=== PATIENT | male | born 1985 | race Caucasian/White ===

== ENCOUNTER → 2021-03-08 12:13 | Outpatient (CLI) | payer BC, SELFPAY ==
--- NOTE | ~2021-03-08 | MR_ITS ---
EXAMINATION: MR brain/brain stem wo/w con DATE: 03/08/2021 13:19 INDICATION: Headache. TECHNIQUE: Magnetic resonance imaging (MRI) of the brain and brainstem was performed without and with 20 mL MultiHance intravenous contrast. Sequences included sagittal and axial T1-weighted FSE, axial diffusion-weighted FS EPI, axial T2*-weighted GRE, axial T2-weighted FLAIR Propeller, and axial T2-we ighted Propeller. Postcontrast sequences included axial and coronal T1-weighted FSE. Apparent diffusi on coefficient (ADC) maps were created. COMPARISON: None. FINDINGS: There is no intracranial hemorrhage, acute infarction, or abnormal intracranial mass lesion . The ventricles are normal in size. The orbits are normal. There is mild mucosal thickening in the p aranasal sinuses. There is a trace left mastoid effusion. IMPRESSION: 1. Normal brain. Reviewed, dictated and finalized at location A. IMPRESSION: 1. Normal brain.
[2021-03-08 13:00] LABS: Estimated Glomerular Filt Rate 53
== END ==
PROVIDERS: PCP Family Medicine; Visit Provider Nurse Practitioner Family
DX: R51.9 Headache, unspecified (principal)
CPT/HCPCS: 70553; A9577

== ENCOUNTER 2023-10-17 09:33 | Outpatient (CLI) | payer BC, SELFPAY ==
--- NOTE | 2023-10-25 20:24 | WPDHOMESLEEP ---
Sleep Study - Home Unattended Date of Study: 10/17/23 Ordering Provider: Melissa Beauchamp MD Interpreting Provider: Melissa Beauchamp MD Home Sleep Study Type: Watch PAT Height: 1.88 m Weight: 104.326 kg Body Mass Index: 29.5 Neck Circumference (inches): 16.5 [place]: 1 Reason for Sleep Study Daytime drowsiness and fatigue Sleep History Genaro Shanakr is a 38-year-old man with difficulty getting to sleep and staying asleep. He has used sleep aids including Trazodone to get to sleep, and Adderall to improve daytime alertness, without improvement. He has diabetes type I for years on an insulin pump. He never awakens from sleep feeling short of breath. He never wakes at night with heartburn, belching or coughing.??He rarely snores, rarely snores loudly enough that others complain. He occasionally has trouble sleeping when he has a cold. He never wakes up gasping for breath during the night. He never has breathing problems at night. He never sweats excessively at night. He never notices his heart pounding or beating irregularly during the night. He rarely falls asleep during the day. He never falls asleep involuntarily, and never falls asleep while driving. He never experiences loss of muscle tone with strong emotion. He constantly has daytime difficulty at work due to excessive sleepiness, he is a web software engineer. He never feels paralyzed on waking or falling asleep. He never experiences vivid dreams upon waking or falling asleep. He never feels afraid of going to sleep. He rarely has nightmares. He rarely recalls his dreams. He rarely has thoughts racing through his mind. He occasionally feels sad or depressed. He frequently feels anxiety. He rarely notices parts of his body jerk. He rarely kicks during the night. He never feels crawling or aching feelings in his legs. He never feels leg pain at night. He never has morning jaw pain, never grinds his teeth at night. He occasionally feels bothered by pain during the day, never awakened by pain during the night. He frequently wakes up feeling stiff in the morning, and he frequently wakes up feeling sore or achy. He frequently awakens with pain in his neck, spine, or joints. He has memory problems and concentration difficulties. He has headaches and insomnia. Normal bedtime is 10:30 p.m., falling asleep within 15-30 minutes, waking 3 or 4 times at night, stays awake for 15 minutes but sometimes up to 1 hour. His nighttime awakenings generally are related to his diabetes, sometimes with low glucose and associated shaking or having hallucinations. He tries not to wake his when he wakes at night. His wake time is 6:30 a.m.. On weekends, bedtime is a little later, 11:00 p.m. to 12 midnight and he wakes up by 7:30 a.m. In general, he does not take naps. A short nap lasting 10-15 minutes is not refreshing. He is usually drowsy all day long. Habits:??Tobacco: never Caffeine:2 cups of coffee. Alcohol: some Recreational substances: marijuana PMFSH Past Medical History Medical History ADD (attention deficit disorder) BMI 29.0-29.9,adult BMI 30.0-30.9,adult BMI greater than 30 Degenerative lumbar disc Infertility Low sperm motility Major depressive disorder, single episode, unspecified Radicular leg pain Stress due to family tension Type 1 diabetes Surgical History Surgical History H/O Spinal surgery Hx of shoulder surgery Family History Family History Mother Family history of malignant neoplasm of breast in first degree relative Breast cancer Degenerative disease of central nervous system Father COVID-19 Hypertension Sibling No problems noted. Social History Social History Smoking status: Never smoker Second hand tobacco smok
[2023-10-25 20:31] VITALS: BMI 29.5
== END 2023-10-18 07:00 | disposition home or self-care (01) ==
LOC: ANHCSM 09:34
PROVIDERS: PCP Family Medicine; Visit Provider Internal Medicine Critical Care Medicine
DX: G47.19 Other hypersomnia (principal)
CPT/HCPCS: 95800

== ENCOUNTER 2024-01-15 08:31 | Outpatient (CLI) | payer BC, SELFPAY ==
--- NOTE | 2024-02-07 15:57 | WPDSLEEPSTUD ---
Sleep Study Date of Study: 01/15/24 Ordering Provider: Melissa Beauchamp MD Interpreting Physician: Lety Palomino, Sleep Study Type: Polysomnogram Height: 1.88 m Weight: 102.058 kg Body Mass Index: 28.8 Neck Circumference (inches): 16 [place]: 1 Reason for Sleep Study Daytime hypersomnia WatchPAT home sleep test on 10/17/2023 showed overall AHI of 1.4 with desaturation down to 85%. Overall RDI was 14.9. Sleep History Genaro Shankar is a 38-year-old man with difficulty getting to sleep and staying asleep. He has used sleep aids including Trazodone to get to sleep, and Adderall to improve daytime alertness, without improvement. He has diabetes type I for years on an insulin pump. He never awakens from sleep feeling short of breath. He never wakes at night with heartburn, belching or coughing.??He rarely snores, rarely snores loudly enough that others complain. He occasionally has trouble sleeping when he has a cold. He never wakes up gasping for breath during the night. He never has breathing problems at night. He never sweats excessively at night. He never notices his heart pounding or beating irregularly during the night. He rarely falls asleep during the day. He never falls asleep involuntarily, and never falls asleep while driving. He never experiences loss of muscle tone with strong emotion. He constantly has daytime difficulty at work due to excessive sleepiness, he is a software support technician. He never feels paralyzed on waking or falling asleep. He never experiences vivid dreams upon waking or falling asleep. He never feels afraid of going to sleep. He rarely has nightmares. He rarely recalls his dreams. He rarely has thoughts racing through his mind. He occasionally feels sad or depressed. He frequently feels anxiety. He rarely notices parts of his body jerk. He rarely kicks during the night. He never feels crawling or aching feelings in his legs. He never feels leg pain at night. He never has morning jaw pain, never grinds his teeth at night. He occasionally feels bothered by pain during the day, never awakened by pain during the night. He frequently wakes up feeling stiff in the morning, and he frequently wakes up feeling sore or achy. He frequently awakens with pain in his neck, spine, or joints. He has memory problems and concentration difficulties. He has headaches and insomnia. Normal bedtime is 10:30 p.m., falling asleep within 15-30 minutes, waking 3 or 4 times at night, stays awake for 15 minutes but sometimes up to 1 hour. His nighttime awakenings generally are related to his diabetes, sometimes with low glucose and associated shaking or having hallucinations. He tries not to wake his when he wakes at night. His wake time is 6:30 a.m.. On weekends, bedtime is a little later, 11:00 p.m. to 12 midnight and he wakes up by 7:30 a.m. In general, he does not take naps. A short nap lasting 10-15 minutes is not refreshing. He is usually drowsy all day long. Habits:??Tobacco: never Caffeine:2 cups of coffee. Alcohol: some Recreational substances: marijuana PMFSH Past Medical History Medical History ADD (attention deficit disorder) BMI 29.0-29.9,adult BMI 30.0-30.9,adult BMI greater than 30 Degenerative lumbar disc Infertility Low sperm motility Major depressive disorder, single episode, unspecified Radicular leg pain Stress due to family tension Type 1 diabetes Surgical History Surgical History H/O Spinal surgery Hx of shoulder surgery Family History Family History Mother Family history of malignant neoplasm of breast in first degree relative Breast cancer Degenerative disease of central nervous system Father COVID-19 Hypertension Sibling No problems noted. Social History Social History (Reviewe
[2024-02-07 16:01] VITALS: BMI 28.8
== END 2024-01-16 04:15 | disposition home or self-care (01) ==
LOC: ANHCSM 08:36
PROVIDERS: PCP Family Medicine; Visit Provider Internal Medicine Critical Care Medicine
DX: G47.19 Other hypersomnia (principal)
CPT/HCPCS: 95810

== ENCOUNTER 2024-09-17 09:52 | Outpatient (CLI) | payer OTHER, SELFPAY ==
--- OUTSIDE RECORDS SUMMARY | 2024-09-17 11:15 | XMS_ITS | Clinical Summary ---
Author Organization [facility] Address [address] [place] [place] [address] Phone Care Team Providers Care Contract Negotiation Manager Name Role Phone Unavailable Primary Care Provider Unavailabl e Allergies No known active allergies Medications insulin lispro (HumaLOG) 100 unit/mL vial Inject by subcutaneous injection. Active insulin glargine (LANTUS) 100 unit/mL injection Inject by subcutaneous injection. Active insulin regular, human (AFREZZA INHALATION) Take by inhalation. Active dextroamphetami ne-amphetamine (ADDERALL) 30 mg tablet Take 30 mg by mouth daily. Active FLUoxetine (PROzac) 20 mg capsule Take 20 mg by mouth daily. Active Active Problems No known active problems Social History Tobacco Use Types Packs/Day Years Used Date Smoking Tobacco: Never Smokeless Tobacco: Never Tobacco Cessation:Counseling Given: No Alcohol Use Standard Drinks/Week Comments Yes 0 (1 standard drink = 0.6 oz pur e alcohol) Sex and Gender Information Value Date Recorded Sex Assigned at Not on file Legal Sex Male 12:50 PM CDT Gender Identity Not on file Sexual Orientation Not on file Last Filed Vital Signs Vital Sign Reading Time Taken Comments Blood Pressure - - Pulse - - Temperature - - Respiratory Rate 18 11/26/2018 1:30 PM CDT Oxygen Saturation - - Inhaled Oxygen Concentration - - Weight 99.8 kg (220 lb) 11/26/2018 1:30 PM CDT Height 188 cm (6' 2 ) 11/26/2018 1:30 PM CDT Body Mass Index 28.25 11/26/2018 1:30 PM CDT Plan of Treatment Health Maintenance Due Date Last Done Comments DTAP/TDAP/TD VACCINES (1 - Tdap) 2002 HEPATITIS B VACCINES (1 of 3 - 19+ 3-dose series) 2002 INFLUENZA VACCINE (#1) 2023 HPV VACCINES Aged Out No longer eligi ble based on patient's age to complete this topic Insurance [address] [place] [id number] [facility] OPEN ACCESS [place] [address] [place] [id number]
--- OUTSIDE RECORDS SUMMARY | 2024-09-17 11:15 | XMS_ITS | Encounter Summary ---
Author Organization [facility] Address [address] [place] [address] Care Team Providers Care Manager Club Name Role Phone Kaushal Long MD Primary Care Provider [phone] Encounter Details Date Type Department Care Team (Late st Contact Info) Description 02/03/2022 Telephone [facility] [address] [place], [place] [id number] Hira Engle MD [address] [facility] [address] [place] [address] Social History Tobacco Use Types Packs/Day Years Used Date Smoking Tobacco: Never Smokeless Tobacco: Never Alcohol Use Standard Drinks/Week Comments Not Currently 0 (1 standard drink = 0.6 oz pur e alcohol) Sex and Gender Information Value Date Recorded Sex Assigned at Not on file Legal Sex Male 2:20 PM CDT Gender Identity Not on file Sexual Orientation Not on file documented as of this encounter Miscellaneous Notes * Telephone Encounter - Shital Mccracken MD - 02/23/2022 2:48 PM CDT Called patient to discuss culture results. Informed patient that fungal culture was negative. Patient appreciative of call. Shital Mccracken MD [facility] Dermatology Resident, PGY2 * Telephone Encounter - Shital Mccracken MD - 02/03/2022 5:01 PM CDT Called patient to discuss culture results. Informed patient that bacterial culture was negative. Fungal culture pending but no fungal growth to date. Patient's questions thoroughly answered. Patient appreciative of call. Shital Mccracken MD [facility] Dermatology Resident, PGY2 * Telephone Encounter - Sola Mendez - 02/03/2022 3:36 PM CDT Pt. Called stated he has not received his results from him appoint on 01/11/22. Please call pt. at [phone]. Thank you. documented in this encounter Plan of Treatment Upcoming Encounters Date Type Department Care Team (Late st Contact Info) Description 09/11/2025 8:20 AM CDT Office Visit [facility] - Dermatology [address] [place] [address], [place] [address] Hira Engle MD [address] [place] [address] [address] [place] [address] documented as of this encounter Visit Diagnoses Not on filedocumented in this encounter Care Teams Manager Club Relationship Specialty Start Date End Date Kaushal Long MD [address] [place] [address] PCP - General 01/11/22 documented as of this encounter
--- OUTSIDE RECORDS SUMMARY | 2024-09-17 11:15 | XMS_ITS | Clinical Summary ---
Author Organization [facility] Address [address] [facility] [place] [address] Care Team Providers Care Breaker Engineer Name Role Phone Kaushal Long MD Primary Care Provider Source Comments [facility],non-owned Affiliates and Associated Physician Practices is amultiple site organization consisting of ambulatory clinics and hospital sitesin [place], [place], [place] and [place]. This disclosure is being madepursuant to the Care Everywhere program and may not contain all information available regarding this patient. Last updated 18.[employer] [facility] Allergies No known active allergies Medications * Be aware that medications may not be up to date on this document. Alwaysverify current medications with the patient. Insulin Regular Human (Afrezza) 90 x 4 UNIT & 90x8 UNIT POWD Inhale 4-8 Units by mouth 3 times daily 12/10/19 22 Active lisinopril (Prinivil; Zestril) 10 MG tablet Take 1 (one) tablet by mouth once daily 02/13/20 23 Active BD Insulin Syringe U/F 31G X 5/16 0.3 ML syringe 03/24/20 23 Active NovoLOG vial INJECT 1:9 GRAMS OF CARBOHYDRATES PLUS 1:40 GREATER THAN 150. TOTAL DAILY DOSE: 60 UNITS 12/30/19 23 Active Continuous Blood Gluc Sensor (Dexcom G7 Sensor) [facility] Use to continually monitor glucose, change sensor every 10 days 03/14/20 23 Active traZODone (Desyrel) 50 MG tablet Take 1 (one) tablet by mouth at bedtime 07/02/19 24 Active Insulin Aspart, w/Niacinamide, (Fiasp PenFill) 100 UNIT/ML SOCT Use a TDD of 100 units via insulin pump 07/06/19 24 Active amphetamine-de xtroamphetamin e XR 24hr (Adderall XR) 30 MG capsule Take 1 (one) capsule by mouth once daily 12/31/19 24 Active multivitamin daily tablet Take 1 (one) tablet by mouth daily with food Active hydrocortisone (Hytone) 2.5 % ointmentIndica tions:Other psoriasis Apply to affected area in gluteal fold twice daily for up to 2 weeks per mo . 90 days supply. 180 g 3 09/02/19 25 Active Taltz 80 MG/ML auto-injector penIndications :Inflammatory back pain,Psoriatic arthritis (HCC) INJECT 1 PEN SUBCUTANEOUSLY EVERY 4 WEEKS 1 mL 3 09/16/19 25 Active ixekizumab (Taltz) 80 MG/ML auto-injector penIndications :Psoriatic Arthritis Inject 1 mL subcutaneously every 28 days Reasons: Psoriasis associated with Arthritis 3 mL 06/03/19 25 025 Discontin ued(Reord er) hydrocortisone (Hytone) 2.5 % ointmentIndica tions:Other psoriasis Apply to affected area in gluteal fold twice daily for up to 2 weeks per mo . 90 days supply. 180 g 11 06/12/19 25 025 Discontin ued(Reord er) Active Problems Problem Noted Date Diagnosed Date Other psoriasis 06/10/2023 Other specified dermatitis 06/10/2023 Intertrigo 04/17/2022 Encounters Date Type Department Care Team Description 09/15/2024 Refill [facility] - Rheumatology [address] [place] [phone] Bartolome Mcqueen MD Refill Request 09/01/2024 10:00 AM CDT Office Visit [facility] - General Dermatology [address] , [facility] [address] [place] [address] Hira Engle MD Other psoriasis (Primary Dx) 09/01/2024 Travel 08/19/2024 Travel 08/06/2024 10:00 AM CDT Office Visit [facility] - Rheumatology [address] [place] [phone] Bartolome Mcqueen MD Psoriatic arthritis (Primary Dx); Other psoriasis; Polyarthralgia; Inflammatory back pain; Axial spondyloarthritis; Immunosuppression due to drug therapy 08/06/2024 Travel 07/11/2024 Telephone [facility]ology [address] [place] [phone] Bartolome Mcqueen MD Medication Issue 07/07/2024 Telephone [facility]ology [address] [place] [phone] Bartolome Mcqueen MD Medication Issue from Last 3 Months Family History Medical History Relation Name Comments None Known Brother None Known Father None Known Maternal Aunt None Known Maternal Grandfather None Known Maternal Grandmother None Known Maternal Uncle None Known Mother None Known Other None Known Paternal Aunt None Known Paternal Grandfather None Known Paternal Grandmother None Known Paternal Uncle None Known Sister Asthma Neg Hx CVA Neg Hx Cancer - Breast Neg Hx Cancer - Other Neg Hx Cancer - Skin, Melanoma Neg Hx Cancer - Skin, Non Melanoma Neg Hx Eczema Neg Hx Hemophilia Neg Hx Psoriasis Neg Hx Relation Name Status Comments Brother Father Maternal Aunt Maternal Grandfather Maternal Grandmother Maternal Uncle Mother Other Paternal Aunt Paternal Grandfather Paternal Grandmother Paternal Uncle Sister Social History Tobacco Use Types Packs/Day Years Used Date Smoking Tobacco: Never Smokeless Tobacco: Never Alcohol Use Standard Drinks/Week Comments Not Currently 0 (1 standard drink = 0.6 oz pur e alcohol) rarely Sex and Gender Information Value Date Recorded Sex Assigned at Not on file Legal Sex Male 2:20 PM CDT Gender Identity Not on file Sexual Orientation Not on file Last Filed Vital Signs Vital Sign Reading Time Taken Comments Blood Pressure 121/76 08/06/2024 9:49 AM CDT Pulse 70 08/06/2024 9:49 AM CDT Temperature 36.3 C (97.3 F) 08/06/2024 9:49 AM CDT Respiratory Rate - - Oxygen Saturation 96% 02/06/2024 9:41 AM CDT Inhaled Oxygen Concentration - - Weight 102.5 kg (226 lb) 08/06/2024 9:49 AM CDT Height 188 cm (6' 2.02 ) 08/06/2024 9:49 AM CDT Body Mass Index 29 08/06/2024 9:49 AM CDT Plan of Treatment Upcoming Encounters Date Type Department Care Team (Late st Contact Info) Description 09/11/2025 8:20 AM CDT Office Visit [facility] - Dermatology [address] [place] [address], [place] [address] Hira Engle MD [address] [place] [address] [address] [place] [address] Health Maintenance Due Date Last Done Comments COVID-19 VACCINE (#1) 1988 HIV SCREENING 1998 DTAP/TDAP/TD VACCINES (1 - Tdap) 2002 HEPATITIS B VACCINE (1 of 3 - 19+ 3-dose series) 2002 PNEUMOCOCCAL VACCINE (1 of 2 - PCV) 2002 ZOSTER VACCINE (1 of 2) 2002 DEPRESSION SCREENING 05/21/2024 INFLUENZA VACCINE (Season Ended) 2025 03/02/2019, 02/04/2018 SCREENING FOR DIABETES 04/04/2026 04/04/2023 LIPID TESTING 10/21/2026 10/21/2021 HEPATITIS C SCREENING Completed 04/04/2023 HIB VACCINE Aged Out No longer eligi ble based on patient's age to complete this topic HPV VACCINE Aged Out No longer eligi ble based on patient's age to complete this topic MENINGOCOCCAL (Group B) VACCINE SHARED DECISION-MAKING Aged Out No longer eligible based on patient's age to complete this topic MENINGOCOCCAL GROUPS A/C/Y/W VACCINE Aged Out No longer eligible b ased on patient's age to complete this topic Procedures Procedure Name Priority Date/Time Associated Diagnosis Comments COMPREHENSIVE METABOLIC PANEL Routine 04/04/2023 11:05 AM PATIENT SERVICES REP Other psoriasis Polyarthralgia Chronic low back pain, unspecified back pain laterality, unspecified whether sciatica present HEPATITIS C ANTIBODY Routine 04/04/2023 11:05 AM PATIENT SERVICES REP Other psoriasis Polyarthralgia Chronic low back pain, unspecified back pain laterality, unspecified whether sciatica present from Last 3 Months or Most Recently Relevant to Health Maintenance Results * (ABNORMAL) COMPREHENSIVE METABOLIC PANEL (04/04/2023 11:05 AM [facility]) BUN 19 7 - 26 mg/dL 04/04/2023 11:55 AM [facility] Creatinine 1.11 0.71 - 1.16 mg/dL 04/04/2023 11:55 AM [facility] Sodium 137 136 - 145 mmol/L 04/04/2023 11:55 AM [facility] Potassium 4.1 3.5 - 4.5 mmol/L 04/04/2023 11:55 AM [facility] Chloride 100 98 - 107 mmol/L 04/04/2023 11:55 AM [facility] CO2 30(H) 22 - 29 mmol/L 04/04/2023 11:55 AM [facility] Glucose 217(H) 70 - 115 mg/dL 04/04/2023 11:55 AM [facility] Calcium 9.2 8.4 - 10.2 mg/dL 04/04/2023 11:55 AM [facility] Protein Total 7.0 6.0 - 8.3 g/dL 04/04/2023 11:55 AM [facility] Albumin 4.1 3.4 - 5.0 g/dL 04/04/2023 11:55 AM [facility] Bilirubin Total 0.9 0.2 - 1.2 mg/dL 04/04/2023 11:55 AM [facility] Alkaline Phosphatase 45 40 - 150 U/L 04/04/2023 11:55 AM [facility] ALT 17 5 - 55 U/L 04/04/2023 11:55 AM [facility] AST 16 5 - 34 U/L 04/04/2023 11:55 AM [facility] Anion Gap 7 6 - 16 04/04/2023 11:55 AM [facility] BUN/Creatinine Ratio 17 7 - 23 04/04/2023 11:55 AM [facility] Osmolality Calculated 293 275 - 295 mOsm/kg 04/04/2023 11:55 AM [facility] Albumin/Globulin Ratio 1.4 1.1 - 2.3 04/04/2023 11:55 AM [facility] eGFR by CKD-EPI 87(L) >=90 mL/min/1.7 3 m2 04/04/2023 11:55 AM [facility] Blood BLOOD SPECIMEN / Unknown Lab Venipuncture / Unknown 04/04/2023 11:05 AM PATIENT SERVICES REP 04/04/2023 11:26 AM PATIENT SERVICES REP Bartolome Mcqueen MD LAB - CHEMISTRY ORDERABL ES Final Result Performing Organization Address City/[facility]/ZIP Co de Phone Number [facility] [address] [place] [address], [place] [phone] * HEPATITIS C ANTIBODY (04/04/2023 11:05 AM PATIENT SERVICES REP) Hepatitis C Antibody Non-react melissa Non-reac tive 04/04/2023 12:11 PM [facility] Comment:Hepatitis C Antibody screen indicates no serologic evidence of past or current infection with Hepatitis C Virus. Patients with unexplained liver disease who are immunocompromised or suspected of having acute Hepatitis C infection may benefit from Nucleic Acid Test (ROSE) for Hepatitis C Viral RNA to confirm Hepatitis C status. Blood BLOOD SPECIMEN / Unknown Lab Venipuncture / Unknown 04/04/2023 11:05 AM PATIENT SERVICES REP 04/04/2023 11:21 AM PATIENT SERVICES REP Bartolome Mcqueen MD LAB - CHEMISTRY ORDERABL ES Final Result [facility] [address] [place] [phone], [place] [phone] from Last 3 Months or Most Recently Relevant to Health Maintenance Insurance [employer] Care Teams Breaker Engineer Relationship Specialty Start Date End Date Kaushal Long MD [address] [place] [address] PCP - General 01/11/22
--- OUTSIDE RECORDS SUMMARY | 2024-09-17 11:15 | XMS_ITS | Encounter Summary ---
Author Organization [facility] Address [address] [place] [address] [place] [address] Care Team Providers Care Field Account Manager Name Role Phone Kaushal Long MD Primary Care Provider [phone] Reason for Visit * Reason Onset Date Comments MEDICATION REFILL 06/03/2024 Encounter Details Date Type Department Care Team (Late st Contact Info) Description 06/03/2024 Telephone [facility] - Centralized Scheduling [address] [place] [phone] Hira Engle MD [address] [place] [address] MEDICATION REFILL Social History Tobacco Use Types Packs/Day Years [...] encounter Miscellaneous Notes * Telephone Encounter - Lesly Mckinley - 06/03/2024 2:46 PM CST Patient called stating that he is needing a refill on his Hydrocortizone cream. He has new insurance which has been updated and had to get a new pharmacy. It's [facility], he would like it to besent there Cbn [phone] TER OPERATOR documented in this encounter Plan of Treatment Upcoming Encounters Date Type Department Care Team (Late st Contact Info) Description 09/11/2025 8:20 AM CDT Office Visit [facility] - Dermatology [address] [facility] [place] [address] Hira Engle MD [address] [place] [address] [address] [place] [address] documented as of this encounter Visit Diagnoses Not on filedocumented in this encounter Care Teams Field Account Manager Relationship Specialty Start Date End Date Kaushal Long MD [address] [place] [phone] PCP - General 01/11/22 documented as of this encounter
--- OUTSIDE RECORDS SUMMARY | 2024-09-17 11:15 | XMS_ITS | Referral Summary ---
Author Organization [facility] Address [address] [place] [address] Care Team Providers Care Learning And Development Administrator Name Role Phone Kaushal Long MD Primary Care Provider Encounters Date Type Department Care Team Description 07/16/2024 Orders Only [facility] Endocrinology Metabolism and Lipid [address] [facility] [address] Office [address], [address] [place] [address] Myra Marquez RN Type 1 diabetes mellitus without complication (HCC) (Primary Dx) from Last 3 Months Allergies No known active allergies Medications omega-3 fatty acids-fish oil 300-1,000 mg capsule 2 times daily. 015 Active blood glucose diagnostic (CONTOUR NEXT TEST STRIPS) strip Testing 6 times daily 600 each 1 019 Active glucagon (BAQSIMI) 3 mg/actuation spray,non-aeros olIndications:h ypoglycemic disorder Administer 1 spray (3 mg total) into one nostril once as needed (severe hypoglycemia, repeat in 15 mins if needed with new device) for up to 1 dose 2 each 11 022 Active dextroamphetami ne-amphetamine XR (ADDERALL XR) 20 mg 24 hr capsule 023 Active Afrezza 4 unit (90)/ 8 unit (90) cartridge, w/inhalation deviceIndicatio ns:Type 1 diabetes mellitus without complication (HCC) INHALE 4 TO 8 UNITS THREE TIMES A DAY WITH MEALS PLUS 4 UNITS WITH SNACKS PLUS SLIDING SCALE. 720 each 3 023 Active Additional Information Patient not taking.Reported on 07/16/2023 traZODone (DESYREL) 50 mg tablet Take 1 tablet (50 mg total) by mouth nightly 024 Active Taltz Autoinjector auto-injector Inject 2 mL (160 mg total) under the skin once Active insulin syringe-needle U-100 (BD Insulin Syringe Ultra-Fine) 0.3 mL 31 gauge x 5/16 syringeIndicati ons:Type 1 diabetes mellitus without complication (HCC) USE TO INJECT FOUR TIMES PER DAY 400 each 3 024 Active insulin glargine (LANTUS) 100 unit/mL vial for injectionIndica tions:Type 1 diabetes mellitus without complication (HCC) INJECT 23 UNITS UNDER THE SKIN DAILY 30 mL 3 024 Active blood-glucose sensor (Dexcom G7 Sensor) deviceIndicatio ns:Type 1 diabetes mellitus without complication (HCC) Use to continually monitor glucose, change sensor every 10 days 9 each 025 Active insulin aspart, B3, pump cart (Fiasp Pumpcart) 100 unit/mL (1.6 mL) cartridgeIndica tions:type 1 diabetes mellitus For use with insulin pump TDD 50 units 45 mL 3 025 Active lisinopriL (PRINIVIL,ZESTR IL) 10 mg tabletIndicatio ns:Type 1 diabetes mellitus without complication (HCC),Primary hypertension Take 1 tablet (10 mg total) by mouth daily 90 tablet 3 025 Active blood-glucose sensor (Dexcom G6 Sensor) deviceIndicatio ns:Type 1 diabetes mellitus without complication (HCC) Will use 1 sensor every 10 days. 1 box = 3 sensors. 3 each 025 Active infusion set for insulin pump infusion setIndications: Type 1 diabetes mellitus without complication (HCC) Change every site every three days 30 each 025 Active FIASP 100 unit/mL (3 mL) pen for injectionIndica tions:Type 1 diabetes mellitus without complication (HCC) INJECT 1:9 GM OF CARBOHYDRATES PLUS 1:40 GREATER THAN 150, TOTAL DAILY DOSE 60 UNITS 60 mL 3 025 Active blood-glucose transmitter (Dexcom G6 Transmitter) deviceIndicatio ns:Type 1 diabetes mellitus without complication (HCC) USE 1 TRANSMITTER EVERY 90 DAYS 1 each 3 025 Active insulin aspart, niacinamide, (FIASP) 100 unit/mL (3 mL) cartridgeIndica tions:Type 1 diabetes mellitus without complication (HCC) Use a TDD of 100 units via insulin pump 105 mL 3 025 Active insulin aspart, niacinamide, (FIASP) 100 unit/mL (3 mL) cartridgeIndica tions:Type 1 diabetes mellitus without complication (HCC) Use a TDD of 100 units via insulin pump 105 mL 3 024 2024 Discontinued(R eorder) blood-glucose transmitter (Dexcom G6 Transmitter) deviceIndicatio ns:Type 1 diabetes mellitus without complication (HCC) Will use 1 transmitter every 90 days 1 each 025 2024 Discontinued Active Problems Problem Noted Date Diagnosed Date 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 Never 07/16/2023 Q2: How many drinks containi ng alcohol do you have on a typical day when you are drinking? Patient does not drink Q3: How often do you have si x or more drinks on one occasion? 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 Gender Identity Not on file Sexual Orientation Not on file Last Filed Vital Signs Vital Sign Reading Time Taken Comments Blood Pressure 135/87 03/21/2024 8:58 AM CDT Pulse 74 03/21/2024 8:58 AM CDT Temperature 36.8 C (98.2 F) 03/21/2024 8:58 AM CDT Respiratory Rate 25 07/16/2023 10:01 AM ELECTRICAL UNIT REBUILDER Oxygen Saturation 96% 07/16/2023 10:00 AM ELECTRICAL UNIT REBUILDER Inhaled Oxygen Concentration - - Weight 107 kg (235 lb 12.8 oz) 03/21/2024 8:58 A M CDT Height 188 cm (6' 2 ) 03/21/2024 8:58 AM CDT Body Mass Index 30.27 03/21/2024 8:58 AM CDT Plan of Treatment Not on file Goals Goal Patient Goal Type Associated Problems Recent Progress Patient-Stated? Author CCM Chronic Pain Care Plan Chronic Care Management No Chuy Armstrong, RN Note: Problem: Chronic Pain Goals: 1. Minimize further functional decline 2. Maximize quality of life 3. Control pain Strategies: - Activity/exercise program recommendation - Conservative stepwise pain medicine strategy with multi-disciplinary approach - Recommend healthy lifestyle strategies and compensatory methods as needed Reduce the likelihood of falling Lifestyle No Chuy Armstrong, RN Note: Below are four things you can do to prevent falls: Begin an exercise program to improve your leg strength & balance Ask your doctor or pharmacist to review your medicines Get annual eye check-ups & update your eyeglasses Make your home safer by: Removing clutter & tripping hazards Putting railings on all stairs & adding grab bars in the bathroom Having good lighting, especially on stairs Contact your local community or senior jackson for information on exercise, fall prevention programs, or options for improving home safety. Procedures Procedure Name Priority Date/Time Associated Diagnosis Comments COMPREHENSIVE METABOLIC PANEL Routine 03/21/2024 9:58 AM CDT Type 1 diabetes mellitus without complication (HCC) LIPID PANEL Routine 03/21/2024 9:58 AM CDT Type 1 diabetes mellitus without complication (HCC) ALBUMIN CREATININE RATIO, URINE Routine 03/21/2024 9:58 AM CDT Type 1 diabetes mellitus without complication (HCC) POCT HEMOGLOBIN A1C Routine 03/21/2024 9 :00 AM CDT Type 1 diabetes mellitus without complication (HCC) TSH Routine 01/01/2020 7:38 AM CDT Type 1 diabetes mellitus (HCC) from Last 3 Months or Most Recently Relevant to Health Maintenance Results * Albumin Creatinine Ratio, Urine (03/21/2024 9:58 AM CDT) Microalb, Ur <7.0 0.0 - 22.9 mg/L [facility] Comment:Repeated and Verifie d Random Urine Creatinine 26.5 mg/dL [facility] Microalb/Creat Ratio <26.4 0.0 - 29.9 mg/g [facility] Urine 03/21/2024 9:58 AM CDT 03/21/2024 11:17 AM CDT Herrera Quijano MD LAB URINE ORDERABLES Lsevia noble Result [facility] * (ABNORMAL) Lipid panel (03/21/2024 9:58 AM CDT) Triglycerides 100 <150 mg/dL [facility] Comment: Desirable: <150 mg/dL, fasting <175 mg/dL, non-fasting Persistently elevated triglycerides may enhance atherosclerotic cardiovascular disease. Total Cholesterol 210(H) <200 mg/dL [facility] Total HDL-C Direct 70 >40 mg/dL [facility] Non-HDL cholesterol 140 <220 mg/dL [facility] Friedewald LDL Chol 120 <190 mg/dL [facility] Blood 03/21/2024 9:58 AM CDT 03/21/2024 11:17 AM CDT Narrative [facility] - 03/21/2024 11:57 AM CDT Current interpretive data was last updated April 22, 2021. For adults ages 40-79, the ACC/AHA recommends discussing your 10-year atherosclerotic cardiovascular disease risk with your health care provider. https://www.acc.org/ASCVDApp These lab test should be done fasting. This means do not eat or drink for at least 12 hours prior to getting your blood drawn. Herrera Quijano MD LAB BLOOD ORDERABLES Lesvia l Result [facility] * (ABNORMAL) Comprehensive metabolic panel (03/21/2024 9:58 AM CDT) Total Protein 7.0 6.1 - 8.4 g/dL [facility] Albumin 4.5 3.5 - 5.2 g/dL [facility] Calcium 9.4 8.6 - 10.3 mg/dL [facility] BUN 13 7 - 23 mg/dL [facility] Total Bilirubin 0.48 0.20 - 1.40 mg/dL [facility] Alk Phos, Total 62 35 - 129 IU/L [facility] AST (SGOT) 18 11 - 47 IU/L [facility] ALT (SGPT) 18 6 - 53 IU/L [facility] Creatinine 1.02 0.70 - 1.30 mg/dL [facility] Sodium 139 135 - 145 mmol/L [facility] Potassium 3.9 3.3 - 5.1 mmol/L [facility] Chloride 100 95 - 107 mmol/L [facility] CO2 Content 29 21 - 29 mmol/L [facility] Glucose 106(H) 64 - 99 mg/dL [facility] Comment: NONFASTING GLUCOSE RANGE = 64-199 mg/dL FASTING GLUCOSE 64 - 99 = NORMAL FASTING GLUCOSE 100 - 125 = IMPAIRED FASTING GLUCOSE FASTING GLUCOSE >=126 = PROVISIONAL DIAGNOSIS OF DIABETES eGFR >90.0 >60.0 mL/min/1.7 3 m2 [facility] Blood 03/21/2024 9:58 AM CDT 03/21/2024 11:17 AM CDT Herrera Quijano MD LAB BLOOD ORDERABLES Lesvia l Result [facility] * POCT hemoglobin A1c (03/21/2024 9:00 AM CDT) Hemoglobin A1C, POC 6.5 4.0 - 5.6 % Blood 03/21/2024 9:00 AM CDT Herrera Quijano MD POINT OF CARE TEST ORDERA BLES Final Result * TSH (01/01/2020 7:38 AM CDT) TSH 2.41 0.40 - 4.50 mIU/L [facility] Blood specimen (specimen) 01/01/2020 7:38 AM CDT 01/01/2020 7:39 AM CDT Narrative [facility] - 01/02/2020 4:03 PM CDT FASTING:NO FASTING: NO Herrera Quijano MD LAB BLOOD ORDERABLES Lesvia l Result [facility] [address] [place] [address] from Last 3 Months or Most Recently Relevant to Health Maintenance Insurance [employer] [facility] PPO Care Teams Learning And Development Administrator Relationship Specialty Start Date End Date Kaushal Long MD PCP - General 10/17/16
--- OUTSIDE RECORDS SUMMARY | 2024-09-17 11:15 | XMS_ITS | Clinical Summary ---
Author Organization [facility] Address [address] [place] [address] Care Team Providers Care Batch Or Continuous Still Operator Name Role Phone Kaushal Long MD Primary Care Provider [phone] Allergies No known active allergies Medications omega-3 [...] (160 mg total) under the skin once 023 Active insulin syringe-needle U-100 (BD Insulin Syringe [...] mg total) by mouth daily 90 tablet 025 Active blood-glucose sensor (Dexcom G6 Sensor) deviceIndicatio ns:Type 1 diabetes mellitus without complication (HCC) Will use 1 sensor every 10 days. 1 box = 3 sensors. 3 each 1 025 Active infusion set for insulin pump infusion setIndications: Type 1 diabetes mellitus without complication (HCC) Change every site every three days 30 each 025 Active FIASP 100 unit/mL (3 mL) pen for injectionIndica tions:Type 1 diabetes mellitus without complication (HCC) INJECT 1:9 GM OF CARBOHYDRATES PLUS 1:40 GREATER THAN 150, TOTAL DAILY DOSE 60 UNITS 60 mL 025 Active blood-glucose transmitter (Dexcom G6 Transmitter) deviceIndicatio ns:Type 1 diabetes mellitus without complication (HCC) USE 1 TRANSMITTER EVERY 90 DAYS 1 each 025 Active insulin aspart, niacinamide, (FIASP) 100 [...] 05/27/2015 Type 1 diabetes mellitus without complication Encounters Date Type Department Care Team Description 07/16/2024 Orders Only [facility] Endocrinology Metabolism and Lipid [address] [facility] [address], [address] [place] [address] Myra Marquez, SMOOTH Type 1 diabetes mellitus without complication (HCC) (Primary Dx) from Last 3 Months Immunizations Immunization Administration Dates Next Due Influenza, Quadrivalent, Spl it, Preservative Free, Intramuscular 03/02/2019,02/04/2018 Surgical History Surgery Date Site/Laterality Comments SHOULDER SURGERY Shoulder Surgery - (Added by TW Conv) Medical History Medical History Date Comments Personal history of other en docrine, nutritional and metabolic disease History of diabetes mellitus - (Added by TW Conv) Depression Type 2 diabetes mellitus (HCC) Chronic pain disorder Low back pain Family History Medical History Relation Name Comments Hypertension Father Family history of hypertension - (Added by TW Conv) Mental illness Mother FH: mental il lness - (Added by TW Conv) Relation Name Status Comments Father Mother Social History Tobacco Use Types Packs/Day Years [...] on file 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 Gender Identity Not on file Sexual Orientation Not on file Obstetrics History Last Filed Vital Signs Vital Sign Reading Time Taken Comments Blood Pressure 135/87 03/21/2024 8:58 AM CDT Pulse 74 03/21/2024 8:58 AM CDT Temperature 36.8 C (98.2 F) 03/21/2024 8:58 AM CDT Respiratory Rate 25 07/16/2023 10:01 AM INFORMATION SYSTEMS CONSULTANT Oxygen Saturation 96% 07/16/2023 10:00 AM INFORMATION SYSTEMS CONSULTANT Inhaled Oxygen Concentration - - Weight 107 kg (235 lb 12.8 oz) 03/21/2024 8:58 A M CDT Height 188 cm (6' 2 ) 03/21/2024 8:58 AM CDT Body Mass Index 30.27 03/21/2024 8:58 AM CDT Plan of Treatment Health Maintenance Due Date Last Done Comments Depression Screening 1983 Foot Exam 1983 Hepatitis C Screening 1983 Dilated Eye Exam 1993 DTaP/Tdap/Td Vaccine (1 - Tdap) 1994 Varicella Vaccines (1 of 2 - 13+ 2-dose series) 1996 Hepatitis B Screening 2001 Regular Well Visit/Exam 18-64 2001 Pneumococcal vaccine <65 (1 of 2 - PCV) 2002 Zoster Vaccine (1 of 2) 2002 Covid-19 Vaccine (3 - Pfizer risk series) 09/27/2020 08/30/2020, 08/09/2020 TSH Level 12/31/2020 01/01/2020, 10/2019, 01/04/2018 Hemoglobin A1C 09/18/2024 03/21/2024, 1212/2022, 04/21/2022, Additional history exists Influenza Vaccine (Season Ended) 2025 03/02/2019, 02/04/2018 Albumin Creatinine Ratio, Urine 03/21/2025 03/21/2024, 10/21/2021, 01/01/2020, Additional history exists Lipid Panel 03/21/2025 03/21/2024, 12/19, 01/04/2018 eGFR 03/21/2025 03/21/2024, 12/19, 06/26/2019 HPV Vaccines Aged Out No longer eligi ble based on patient's age to complete this topic Goals Goal Patient Goal Type Associated Problems [...] stairs Contact your local community or senior stow for information on exercise, fall prevention programs, [...] CDT Herrera Quijano MD LAB URINE ORDERABLES Lesvia noble Result [facility] * (ABNORMAL) [...] AM CDT 03/21/2024 11:17 AM CDT Narrative [facility] - 03/21/2024 11:57 AM CDT [...] [facility] * POCT hemoglobin A1c (03/21/2024 9:00 AM CDT) Pathologist [facility] Hemoglobin A1C, POC 6.5 4.0 - 5.6 % Blood 03/21/2024 9:00 AM CDT us Herrera Quijano MD POINT OF CARE TEST ORDERA BLES Final Result * TSH (01/01/2020 7:38 AM CDT) TSH 2.41 0.40 - 4.50 mIU/L [facility] Blood specimen (specimen) 01/01/2020 7:38 AM CDT 01/01/2020 7:39 AM CDT Narrative [facility] - 01/02/2020 4:03 PM CDT FASTING:NO FASTING: NO Herrera Quijano MD LAB BLOOD ORDERABLES Lesvia l Result [facility] [address] [facility] [place] [address] from Last 3 Months or Most Recently Relevant to Health Maintenance Insurance [employer] [facility] [facility] [employer] PPO Care Teams Batch Or Continuous Still Operator Relationship Specialty Start Date End Date Kaushal Long MD PCP - General 10/17/16
[2024-10-15 14:35] VITALS: BMI 29.5
--- NOTE | 2024-10-15 14:35 | WPDSLEEPSTUD ---
Sleep Study Date of Study: 09/17/24 Ordering Provider: Skip Leblanc APRN Interpreting Physician: Lety Palomino DO Sleep Study Type: Split Polysomnogram Height: 1.88 m Weight: 104.326 kg Body Mass Index: 29.5 Neck Circumference (inches): 17 [place]: 1 Reason for Sleep Study Daytime hypersomnia [employer] home sleep test on 10/17/2023 showed overall AHI of 1.4 with desaturation down to 85%. Overall RDI was 14.9. Polysomnogram on 01/15/2024 showed overall AHI of 0.2 with desaturation down to 93%. Sleep History Genaro Shankar is a 39-year-old man with difficulty getting to sleep and staying asleep. He has used sleep aids including Trazodone to get to sleep, and Adderall to improve daytime alertness, without improvement. He has diabetes type I for years on an insulin pump. He never awakens from sleep feeling short of breath. He never wakes at night with heartburn, belching or coughing.??He rarely snores, rarely snores loudly enough that others complain. He occasionally has trouble sleeping when he has a cold. He never wakes up gasping for breath during the night. He never has breathing problems at night. He never sweats excessively at night. He never notices his heart pounding or beating irregularly during the night. He rarely falls asleep during the day. He never falls asleep involuntarily, and never falls asleep while driving. He never experiences loss of muscle tone with strong emotion. 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 He never feels paralyzed on waking or falling asleep. He never experiences vivid dreams upon waking or falling asleep. He never feels afraid of going to sleep. He rarely has nightmares. He rarely recalls his dreams. He rarely has thoughts racing through his mind. He occasionally feels sad or depressed. He frequently feels anxiety. He rarely notices parts of his body jerk. He rarely kicks during the night. He never feels crawling or aching feelings in his legs. He never feels leg pain at night. He never has morning jaw pain, never grinds his teeth at night. He occasionally feels bothered by pain during the day, never awakened by pain during the night. He frequently wakes up feeling stiff in the morning, and he frequently wakes up feeling sore or achy. He frequently awakens with pain in his neck, spine, or joints. He has memory problems and concentration difficulties. He has headaches and insomnia. Normal bedtime is 10:30 p.m., falling asleep within 15-30 minutes, waking 3 or 4 times at night, stays awake for 15 minutes but sometimes up to 1 hour. His nighttime awakenings generally are related to his diabetes, sometimes with low glucose and associated shaking or having hallucinations. He tries not to wake his when he wakes at night. His wake time is 6:30 a.m.. On weekends, bedtime is a little later, 11:00 p.m. to 12 midnight and he wakes up by 7:30 a.m. In general, he does not take naps. A short nap lasting 10-15 minutes is not refreshing. He is usually drowsy all day long. Habits:??Tobacco: never Caffeine:2 cups of coffee. Alcohol: some Recreational substances: marijuana PMFSH Past Medical History Medical History Low sperm motility Infertility BMI 29.0-29.9,adult Radicular leg pain Degenerative lumbar disc BMI greater than 30 BMI 30.0-30.9,adult Stress due to family tension Type 1 diabetes ADD (attention deficit disorder) Major depressive disorder, single episode, unspecified Surgical History Surgical History Hx of shoulder surgery H/O Spinal surgery Family History Family History Mother Family history of malignant neoplasm of breast in first degree relative Breast cancer Degenerative disease of central nervous system Father COVID-19 Hypertension Sibling No problems noted. Social History Social History Smoking status: Never smoker Second hand tobacco smoke exposure: Yes Alcohol intake: current Substance use: current Substance use type: marijuana Do You Feel Safe in your Home?: Yes Lack of Transportation: No Lack of Food: Never True Current Housing: I Have Housing Concerned About Future Housing: No Difficulty Paying Gas/Electric Bills: No Difficulty Paying for Meds: No Currently Unemployed: No Education: Master's Degree or Higher Difficulty w/ Childcare or Family Care: No Living arrangements: with family Occupation/Education: occupation Additional occupation/education comments: [employer] Gender identity (if verbalized by the patient): Male Medications Home Medications ?Medication ?Instructions ?Recorded ?Confirmed ?Type lisinopril 5 mg tablet 5 mg PO .QD 03/09/22 06/27/24 History hydrocortisone 1 % topical cream 1 applic topical TID PRN psoriasis 01/30/23 06/27/24 Rx #30 grams insulin aspart (B3)(U-100) 100 subcut 09/04/23 06/27/24 History unit/mL (1.6 mL) subcut pump cartridge (Fiasp Pumpcart) dextroamphetamine-amphetamine ER 25 mg PO DAILY #30 caps 08/06/24 Rx 25 mg 24hr capsule,extend release (Adderall XR) dextroamphetamine-amphetamine ER 5 5 mg PO DAILY #30 caps 08/06/24 Rx mg 24hr capsule,extend release (Adderall XR) Sleep Procedure A full night split study using the [email or web address] multi-channel system recorded the standard physiologic parameters including EEG, EOG, submentalis EMG, anterior tibialis EMG, EKG, body position, nasal and oral airflow using nasal pressure sensor and thermistor.? Respiratory parameters of chest and abdominal movements were recorded with Respiratory Inductance Plethysmography belts. Oxygen saturation was recorded by pulse oximetry. Video monitoring was also performed. Sleep stages, periodic limb movements, and EEG arousals were scored in 30 second epochs according to the criteria of the AASM Scoring Manual. The Apnea-Hypopnea Index was calculated using CMS guidelines for definition of hypopnea with 4% O2 desaturations while scoring respiratory events. Sleep Architecture During the diagnostic portion of the study, the total recording time was 171.4 minutes. The total sleep time was 135.0 minutes. Sleep latency was 15.4 minutes.? REM latency was 98.0 minutes. Sleep Efficiency was 78.7%. The patient had 5 awakenings for an awakening index of 2.2. Wake after sleep onset time was 21.0 minutes. The patient spent 7.5 minutes, 5.6% of total sleep time in Stage N1. The patient spent 79.0 minutes, 58.5% in Stage N2. The patient spent 7.5 minutes, 5.6% in Stage N3. The patient spent 41.0 minutes, 30.4% in Stage REM sleep. At 12:14:40 AM the patient was placed on PAP treatment and was titrated at pressures ranging from 5 cm H20 up to 9 cm H20. During the treatment portion of the study, the total recording time was 360.0 minutes.? The total sleep time was 311.0 minutes. Sleep latency was 3.5 minutes. REM latency was 127.5 minutes. Sleep Efficiency was 86.4%. Wake after Sleep Onset time was 46.0 minutes. The patient spent 38.5 minutes, 12.4% of total sleep time in Stage N1. The patient spent 192.5 minutes, 61.9% in Stage N2. The patient spent 2.5 minutes, 0.8% in Stage N3. The patient spent 77.5 minutes, 24.9% in Stage REM. Respiratory Analysis During the diagnostic portion of the study, the patient had 30 hypopneas and 1 central apnea for an overall Apnea Hypopnea Index of 13.8 events per hour. The REM Apnea Hypopnea Index was 16.1. The NREM Apnea Hypopnea Index was 13.4. The patient had a Central Apnea Hypopnea Index of 0.4. There was no evidence of Prabhjot-Jarrett Respirations. During the treatment portion of the study, the patient had 2 hypopneas for an overall Apnea Hypopnea Index of 0.4 events per hour. The REM Apnea Hypopnea Index was 0.8. The NREM Apnea Hypopnea Index was 0.3. The patient had a Central Apnea Hypopnea Index of 0. There was no evidence of Prabhjot-Jarrett Respirations. The patient was started on CPAP 5 cm H2O and titrated to CPAP 9 cm H2O due to hypopneas. The patient was able to fall asleep starting on CPAP 5 cm H2O. The patient was able to achieve REM sleep starting on CPAP 7 cm H2O. The patient was able to achieve a residual AHI less 5 with both NREM and REM sleep on the final 3 pressure settings. On CPAP 8 cm H2O, the patient spent 58 minutes in NREM and 50.5 minutes in REM with 1 hypopneas, resulting in an AHI of 0.6. On CPAP 9 cm H2O, the patient spent 6.5 minutes in NREM and 5 minutes in REM with no respiratory events, resulting in an AHI of 0. The patient had a sleep efficiency of 85.8% on 8 cm H2O and 76.7% on 9 cm H2O. Arousals During the diagnostic portion of the study, there were a total of 24 arousals for an arousal index of 10.7.? There were 4 respiratory arousals for an index of 1.8. There were 0 periodic limb movement arousals for an index of 0.? There was 1 isolated limb movement arousal for an index of 0.4. There were 19 spontaneous arousals for an index of 8.4. During the treatment portion of the study, there were a total of 84 arousals for an index of 16.2.? There were 3 respiratory arousals for an index of 0.6. There were 7 periodic limb movement arousals for an index of 1.4.? There were 11 isolated limb movement arousals for an index of 2.1. There were 64 spontaneous arousals for an index of 12.3. Periodic Limb Movements During the diagnostic portion of the study, the patient had 7 isolated limb movements with an index of 3.1. The patient had 5 periodic limb movements with an index of 2.2. The patient had a total of 12 limb movements with a total limb movement index of 5.3. During the treatment portion of the study, the patient had 43 isolated limb movements with an index of 8.3. The patient had 28 periodic limb movements with an index of 5.4. The patient had a total of 71 limb movements with a total limb movement index of 13.7. Oximetry Data During the diagnostic portion of the study, the patient had an average oxygen saturation of 93.4% in wake with a minimum oxygen saturation of 90% and a maximum oxygen saturation of 98%. The patient had an average oxygen saturation of 92.3% in sleep with a minimum oxygen saturation of 88.0% and a maximum oxygen saturation of 96.0%. The patient had 39 oxygen desaturations resulting in an Oxygen Desaturation Index of 17.3. The patient spent 0 minutes of total sleep time with an oxygen saturation less than 88%. During the treatment portion of the study, the patient had an average oxygen saturation of 94.7% in wake with a minimum oxygen saturation of 91.0% and a maximum oxygen saturation of 98.0%. The patient had an average oxygen saturation of 94.4% in sleep with a minimum oxygen saturation of 91.0% and a maximum oxygen saturation of 98.0%. The patient had 7 oxygen desaturations resulting in an Oxygen Desaturation Index of 1.4. The patient spent 0 minutes of total sleep time with an oxygen saturation less than 88%. Snoring Profile Moderate to loud snoring was present during the baseline portion of the study. The snoring resolved once the patient was titrated to 8 cm H2O. Cardiac Profile The EKG lead showed nornal sinus rhythm. No arrhythmias or premature beats were seen. During the diagnostic portion of the study, the average pulse rate was 68.3 bpm? The minimum pulse rate was 53.0 bpm. The maximum pulse rate was 104.0 bpm. During the treatment portion of the study, the average pulse rate was 58.5 bpm.? The minimum pulse rate was 50.0 bpm. The maximum pulse rate was 98.0 bpm. EEG Profile No signs of seizure activity seen. Assessment and Plan Assessment and Plan (1) KAY (obstructive sleep apnea): Code(s): G47.33 - Obstructive sleep apnea (adult) (pediatric) Status: Acute Assessment and Plan: In the baseline portion of the study, the patient had an overall AHI of 13.8 with desaturation down to 88%. This is consistent with mild sleep apnea. Due to the patient's diabetes, he qualifies for treatment. The patient was started on CPAP 5 cm H2O and titrated to CPAP 9 cm H2O due to hypopneas. The patient's sleep apnea resolved on multiple pressure settings. I recommend that the patient be prescribed CPAP 8 cm H2O, size medium F&P Solo nasal mask, CPAP filters/tubing and heated humidity. This should be used with all episodes of sleep.? Compliance should be reviewed within 31-90 days of starting therapy for usage greater than 4 hours per night greater than 70% of the nights. The patient should be asked about symptoms such as?excessive daytime sleepiness, quality of sleep, decreased nocturia, increased?mental functioning such as memory, mood, and concentration. Data The data obtained during this sleep study is adequate for interpretation. Certification This sleep study has been reviewed by a board certified sleep medicine physician.
== END 2024-09-18 07:15 | disposition home or self-care (01) ==
LOC: ANHCSM 10:07
PROVIDERS: PCP Family Medicine; Visit Provider Nurse Practitioner Family
DX: G47.30 Sleep apnea, unspecified (principal); F51.8 Other sleep disorders not due to a substance or known physiological condition; G47.33 Obstructive sleep apnea (adult) (pediatric)
CPT/HCPCS: 95811